=== PATIENT | male | born 1950 | race Two or more races ===

== ENCOUNTER 2018-07-20 16:07 | Outpatient (CLI) | payer OTHER | END 2018-07-20 16:30 | disposition home or self-care (01) | LOC: LAB 16:07 | DX: E03.8 Other specified hypothyroidism (principal); E11.9 Type 2 diabetes mellitus without complications ==

== ENCOUNTER 2018-07-26 13:15 | Inpatient (IN) | payer OTHER ==
[~2018-07-26] VITALS: Ht 167.6 cm; Wt 73.9 kg
[2018-08-01] MEDS ORDERED: TAMS0.4C (08:43)
[2018-08-01] MEDS ORDERED: LISINOPRIL5 MG (08:43)
[2018-08-07] MEDS ORDERED: AMOX1TAB5 PO (14:58)
[2018-08-07] MEDS ORDERED: INTESTINEX680 M1 PO (14:59)
[2018-08-07] MEDS ORDERED: PERCOCET 5-3251 EACH PO (14:59)
[2018-08-07] MEDS ORDERED: PROTONIX40 MG PO (14:59)
== END 2018-08-07 16:16 | disposition home or self-care (01) | DRG 330 ==
LOC: EDUNIT# 13:15 → SURH 08-01 05:30 → O/R 08-01 08:35 → SURH 08-01 13:15
PROVIDERS: Urology; ADMIT Surgery
PROC: 0D1N0Z4 Bypass Sigmoid Colon to Cutaneous, Open Approach (ICD-10-PCS; 2018-08-01)
PROC: 07BC0ZZ Excision of Pelvis Lymphatic, Open Approach (ICD-10-PCS; 2018-08-01)
PROC: 0T788DZ Dilation of Bilateral Ureters with Intraluminal Device, Via Natural or Artificial Opening Endoscopic (ICD-10-PCS; 2018-08-01)
PROC: 0WJG4ZZ Inspection of Peritoneal Cavity, Percutaneous Endoscopic Approach (ICD-10-PCS; 2018-08-01)
PROC: 0DTN0ZZ Resection of Sigmoid Colon, Open Approach (ICD-10-PCS; principal; 2018-08-01 05:30)
PROC: 0DTP0ZZ Resection of Rectum, Open Approach (ICD-10-PCS; 2018-08-01 05:30)
DX: C20 Malignant neoplasm of rectum (principal); D62 Acute posthemorrhagic anemia; C79.89 Secondary malignant neoplasm of other specified sites; K91.89 Other postprocedural complications and disorders of digestive system; K56.7 Ileus, unspecified; R59.0 Localized enlarged lymph nodes; R15.9 Full incontinence of feces; I11.9 Hypertensive heart disease without heart failure; N40.0 Benign prostatic hyperplasia without lower urinary tract symptoms; E78.00 Pure hypercholesterolemia, unspecified; Z53.31 Laparoscopic surgical procedure converted to open procedure